=== PATIENT | female | born 1985 | race Caucasian/White ===

== ENCOUNTER 2018-05-14 00:21 | Outpatient (CLI) | payer BC, SELFPAY, MEDICAID ==
--- NOTE | 2018-05-14 13:55 | DI.US_ITS ---
SYMPTOMS/DIAGNOSIS: , SURVEY, Z34.81 OB ULTRASOUND: There is a single living intrauterine gestation. The estimated sonographic age is 18 weeks 6 days. No or placental abnormalities are identified. Please refer to the obstetrical ultrasound examination report for complete details. IMPRESSION: Single living intrauterine gestation. Estimated sonographic age is 18 weeks 6 days. Many abnormalities cannot be diagnosed. A normal exam does not exclude a congenital anomaly. Radiology No. [id number] LMP: Exam Date: [facility] wks days on EDC ([facility]) 10/11/18 Confirmed: HISTORY: survey ---- PREDICTED GESTATIONAL AGE NUMBER 18+4 weeks with a range of 17+4 weeks to 19+4 weeks. 1 Determined by 1STUS X LMP___HISTORY Info. pertaining to fetus # PLACENTA PRESENTATION Grade I Cephalic___ Anterior___Posterior X Breech____ Right Left Transverse(head right___ Fundal X Low-lying___Previa___ Transverse(head left___ Varying X BIOMETRY AMNIOTIC FLUID BPD: 42 mm 18+4 weeks Normal HC: 160 mm 18+6 weeks AC: 131 mm 18+5 weeks FL: 29 mm 19 weeks AMNIOTIC FLUID INDEX >26 WK CRL: mm weeks Cisterna Magna: 5 mm CI: 78 RUQ: LUQ Cerebellum: 1.9 cm EFW: 259 grams Percentile RLQ: LLQ Total: cms Composite AGE= 18+6 wks EDC by US 10/09/18 BIOPHYSICAL PROFILE ANATOMY IDENTIFIED SCORE 0/2 Heart: 4-Chamber X Rate: 149 BPM LVOT: X RVOT: X Amniotic Fluid(>2cms)____ Stomach: X Kidneys: X Respirations (>30 secs) Bladder: X Post. Fossa: X Body Flex/Extension 3 vessel cord:X Ventricles: X cord insertion: X Lips: X Extremity Flex/Extension spinal morphology:X Nose: X Total Score= Palate: X NS=not seen
== END 2018-05-14 00:41 ==
PROVIDERS: PCP Family Medicine; Visit Provider Advanced Practice Midwife
DX: Z34.82 Encounter for supervision of other normal pregnancy, second trimester (principal)
CPT/HCPCS: 76805

== ENCOUNTER 2018-07-20 08:40 | Outpatient (CLI) | payer BC, MEDICAID, SELFPAY ==
[2018-07-20 12:42] LABS: HCT 36.1 % (36.0-46.0); HGB 12.1 g/dL (12.0-15.5); Mean Corp. HGB Concentration 33.5 g/dL (32.0-36.0); Mean Corpuscular Volume 89.4 fL (80-95); Mean Platelet Volume 9.9 fL (8.0-11.0); Platelet Count 249 x1000/uL (130-400); RBC 4.04 m/cumm (4.00-5.20); RBC Distribution Width 14.6 % (11.7-14.6); White Blood Cell Count 15.17 k/cumm (4.4-10.8)
[2018-07-20 12:49] LABS: Glucose,1 Hr (Glucola) 101 mg/dL (80-140)
== END 2018-07-20 09:00 ==
PROVIDERS: PCP Family Medicine; Visit Provider Advanced Practice Midwife
DX: Z34.93 Encounter for supervision of normal pregnancy, unspecified, third trimester (principal)
CPT/HCPCS: 36415; 82950; 85027

== ENCOUNTER 2018-09-21 13:39 | Outpatient (CLI) | payer BC, MEDICAID, SELFPAY | END 2018-09-21 13:59 | PROVIDERS: PCP Family Medicine; Visit Provider Advanced Practice Midwife | DX: Z01.818 Encounter for other preprocedural examination (principal) ==

== ENCOUNTER 2018-09-21 15:59 | Outpatient (REF) | payer BC, MEDICAID, SELFPAY | END 2018-09-21 16:19 | LOC: LBN 15:59 | PROVIDERS: PCP Family Medicine; Visit Provider Advanced Practice Midwife | DX: Z34.93 Encounter for supervision of normal pregnancy, unspecified, third trimester (principal); Z36.85 Encounter for antenatal screening for Streptococcus B | CPT/HCPCS: 87081 ==

== ENCOUNTER 2018-10-18 10:04 | Outpatient (CLI) | payer BC, MEDICAID, SELFPAY | END 2018-10-18 10:24 | PROVIDERS: PCP Family Medicine; Visit Provider Advanced Practice Midwife | DX: O48.0 Post-term pregnancy (principal); Z3A.40 40 weeks gestation of pregnancy | CPT/HCPCS: 59025 ==

== ENCOUNTER 2018-10-18 11:59 | Outpatient (CLI) | payer BC, MEDICAID, SELFPAY ==
[2018-10-18 12:29] LABS: HGB 13.4 g/dL (12.0-15.5)
== END 2018-10-18 12:19 ==
PROVIDERS: PCP Family Medicine; Visit Provider Obstetrics & Gynecology
DX: O34.219 Maternal care for unspecified type scar from previous cesarean delivery (principal); Z01.818 Encounter for other preprocedural examination
CPT/HCPCS: 36415; 86850; 86900; 86901; 85014; 85018

== ENCOUNTER 2018-10-20 01:29 | Inpatient (IN) | payer BC, MEDICAID, SELFPAY ==
[2018-10-20 03:28] LABS: HGB 13.9 g/dL (12.0-15.5); Mean Corp. HGB Concentration 33.9 g/dL (32.0-36.0); Mean Corpuscular Hemoglobin 29.8 pg (27.0-33.0); Platelet Count 211 x1000/uL (130-400); RBC 4.66 m/cumm (4.00-5.20); RBC Distribution Width 15.1 % (11.7-14.6); White Blood Cell Count 12.68 k/cumm (4.4-10.8)
[2018-10-20] MEDS: Acetaminophen 325 MG TAB 650 MG PO ×4 (05:37→19:38)
[2018-10-20] MEDS: Ibuprofen 600 MG TAB PO ×3 (05:38→17:03)
[2018-10-20] MEDS: Hamamelis Leaf/Glycerin 100 EACH BOX PR (05:41)
[2018-10-20] MEDS: Sodium Chloride-Nasal SPRAY-ADULT 44 ML BTL NS ×2 (12:27→17:03)
[2018-10-21] MEDS: Acetaminophen 325 MG TAB 650 MG PO (08:35)
[2018-10-21] MEDS: Ibuprofen 600 MG TAB PO (08:35)
[2018-10-21] MEDS: Sodium Chloride-Nasal SPRAY-ADULT 44 ML BTL NS (08:35)
[2018-10-21 11:31] LABS: HCT 38.4 % (36.0-46.0); HGB 12.8 g/dL (12.0-15.5); Mean Corp. HGB Concentration 33.3 g/dL (32.0-36.0); Mean Corpuscular Hemoglobin 29.7 pg (27.0-33.0); Mean Corpuscular Volume 89.1 fL (80-95); Mean Platelet Volume 10.8 fL (8.0-11.0); Platelet Count 227 x1000/uL (130-400); RBC 4.31 m/cumm (4.00-5.20); RBC Distribution Width 15.2 % (11.7-14.6); White Blood Cell Count 12.47 k/cumm (4.4-10.8)
== END 2018-10-21 14:10 | disposition home or self-care (01) | DRG 807 ==
PROVIDERS: Admitting Provider Advanced Practice Midwife; PCP Family Medicine; Visit Provider Advanced Practice Midwife
DX: O34.211 Maternal care for low transverse scar from previous cesarean delivery (principal); Z37.0 Single live birth; O48.0 Post-term pregnancy; Z3A.41 41 weeks gestation of pregnancy; N85.8 Other specified noninflammatory disorders of uterus; O99.52 Diseases of the respiratory system complicating childbirth; J06.9 Acute upper respiratory infection, unspecified
CPT/HCPCS: 85027; 86850; 86900; 86901; J3490

== ENCOUNTER 2018-12-01 16:25 | Outpatient (REF) | payer BC, MEDICAID, SELFPAY ==
[2018-12-02 15:23] LABS: Chlamydia Result Negative; GC Result Negative; Specimen Description CERVIX
== END 2018-12-01 16:45 ==
LOC: LBN 16:25
PROVIDERS: PCP Family Medicine; Visit Provider Advanced Practice Midwife
DX: Z11.3 Encounter for screening for infections with a predominantly sexual mode of transmission (principal)
CPT/HCPCS: 87491; 87591

== ENCOUNTER 2019-03-30 10:36 | Outpatient (REF) | payer BC, MEDICAID, SELFPAY | END 2019-03-30 10:56 | LOC: LBN 10:36 | PROVIDERS: PCP Family Medicine; Visit Provider Advanced Practice Midwife | DX: R10.9 Unspecified abdominal pain (principal) | CPT/HCPCS: 87077; 87086; 87186 ==

== ENCOUNTER 2022-09-08 14:34 | Outpatient (REF) | payer OTHER, SELFPAY ==
--- NOTE | 2022-09-08 13:45 | PAPFT_PTH ---
PATIENT: Francine Baig LOC: [facility]#:[id number] AGE/SX: 37/F ROOM: RE09/08/[address]: Stephanie Agarwal : 1985 BED: DIS: 09/08/2022 SPEC #: [id number] RECD: 09/08/22 17:22 STATUS: SARAVANAN REOmar #: [id number] AKANKSHA: 09/08/22 13:[address]: Stephanie Agarwal DEPT: [facility] Cytology RECD BY: Raquel Mendez Tissues: 1 - CX/ENDOCX FOR PAP SMEARS Procedures: PAP THIN PREP/UVM Screening HPV DNA PROBE Comments: [id number]
== END 2022-09-08 14:35 | disposition home or self-care (01) ==
LOC: NCHCN 14:34
PROVIDERS: PCP Family Medicine; Visit Provider Family Medicine
DX: Z12.4 Encounter for screening for malignant neoplasm of cervix (principal); Z11.51 Encounter for screening for human papillomavirus (HPV); Z01.419 Encounter for gynecological examination (general) (routine) without abnormal findings
CPT/HCPCS: 88142; 87624

== ENCOUNTER 2022-09-15 14:37 | Outpatient (REF) | payer OTHER, SELFPAY ==
[2022-09-15 15:16] LABS: Abs Immature Grans 0.03 10^3/uL (0.0-0.06); Absolute Basophil Count 0.04 10^3/uL (0.0-0.2); Absolute Lymphocyte Count 2.18 10^3/uL (1.2-3.4); Absolute Monocyte Count 0.63 10^3/uL (0.1-0.8); Absolute Neutrophil Count 5.81 10^3/uL (1.2-6.7); Basophils % 0.5; Eosinophils % 1.1; HCT 36.9 % (36.0-46.0); HGB 12.2 g/dL (11.2-15.7); Immature Grans % 0.3; Lymphocytes % 24.8; MCH 29.3 pg (27.0-33.0); MCHC 33.1 % (32.0-36.0); MCV 89 fL (80-95); MPV 9.5 fL (8.0-11.0); Monocytes % 7.2; Neutrophils % 66.1; Platelet Count 309 10^3/uL (130-400); RBC 4.16 10^6/uL (3.93-5.22); RDW 13.9 % (11.7-14.6); RDW-SD 45.2 fL; WBC 8.79 10^3/uL (4.4-10.8)
[2022-09-15 15:26] LABS: Prothrombin Time 10.3 sec (9.3-11.0)
[2022-09-15 15:46] LABS: ALT 50 U/L (14-59); AST 35 U/L (15-37); Albumin 4.4 g/dL (3.4-5.0); Alkaline Phosphatase 60 U/L (46-116); Anion Gap 10.9 mmol/L (3-11); BUN 13 mg/dL (7-18); Bilirubin, Total 0.4 mg/dL (0.2-1.0); CO2 27.1 mmol/L (21.0-32.0); CREATININE 0.8 mg/dL (0.55-1.02); Calcium 9.2 mg/dL (8.5-10.1); Chloride 103 mmol/L (98-107); Estimated GFR 96.66 (mL/min/1.73m2); Ferritin 158 ng/mL (8-252); Glucose 101 mg/dL (74-106); Potassium 3.7 mmol/L (3.5-5.1); Sodium 141 mmol/L (136-145); TSH (W/Ref FT4) 1.86 uIU/mL (0.36-3.74); Total Protein 7.2 g/dL (6.4-8.2)
== END 2022-09-15 14:38 | disposition home or self-care (01) ==
LOC: LBN 14:37
PROVIDERS: PCP Family Medicine; Visit Provider Surgery
DX: K62.5 Hemorrhage of anus and rectum (principal); R19.8 Other specified symptoms and signs involving the digestive system and abdomen; F17.210 Nicotine dependence, cigarettes, uncomplicated
CPT/HCPCS: 80053; 82728; 84443; 85025; 85610

== ENCOUNTER 2022-09-19 08:50 | Day surgery (SDC) | payer OTHER, SELFPAY ==
--- NOTE | 2022-09-18 21:03 | PDOC.DSDIS_ITS ---
Date of service: 09/19/22 Time of Service: 12:39 Discharge Plan Disposition Patient Disposition: Home Condition: Good Discharge Details Reason For Visit: Colonoscopy Attending Provider: Haroon Matute Primary Care Provider: Stephanie Agarwal Home Meds and New Rx's Prescriptions: Continued ibuprofen 200 mg capsule 400 mg PO QID PRN Mirena 20 mcg/24 hours (5 yrs) 52 mg intrauterine device 1 device IY ONCE multivitamin Tablet 1 tab PO DAILY zinc gluconate 50 mg tablet 50 mg PO DAILY acetaminophen [Tylenol Extra Strength] 500 MG tablet 500 mg PO PRN Qty: 2 Discharge Instructions Instructions: Rubber Band Ligation (GEN), Hemorrhoids (GEN), Diverticulosis (GEN), Diverticulosis Diet (GEN) Additional Instructions: 1. If tolerated, consume a soft, low fiber diet for 1-2 days. [address] not drive, drink alcohol, operate machinery, make critical decisions, or do activities that require coordination or balance for 24 hours. 3. Because air was put into your colon during the procedure, expelling air from your rectum (passing gas or farting) is normal. 4. You may not have a bowel movement for 1-3 days because of the colonoscopy prep. This is normal. 5. Go directly to the emergency room if you notice any of the following: Develop chills (warm to touch), or if you have a thermometer and your temperature is above 101 Difficulty breathing or difficultly swallowing Persistent vomiting Severe abdominal pain, other than gas cramps Severe chest pain Black, tarry stools Any bleeding ? exceeding one tablespoon 6. Call your physician if the site where your intravenous was started becomes red, swollen, painful, and warm to touch. 7. Your physician has reviewed your pre-procedure medications. Please continue to take those medications as previously ordered. You will be given specific information/education regarding any changes to your medications before leaving. Referrals: Haroon Matute MD [ [facility] STAFF PHYSICIAN] - (Follow-up with myself, or Dr. Montague in approximately 10 to 14 days) Activity:: Activity as Tolerated Diet:: As Tolerated Discharge Orders Discharge Orders: Discharge Order (Routine); Ordered 09/18/22 Ordered By: Haroon Matute DS: Diagnosis Discharge Diagnosis (1) BRBPR (bright red blood per rectum): Status: Acute Asessment and Plan: Internal hemorrhoid banding today
--- NOTE | 2022-09-18 21:04 | W.COLOREPORT ---
Date of service: 09/19/22 Time of Service: 12:44 Colonoscopy Report Date of procedure: 09/19/22 Pre-op diagnosis general: Bright red blood per rectum Post-op diagnosis procedure note: other Procedure: Anoscopy with internal hemorrhoid banding. Colonoscopy Surgeon: Haroon Matute Anesthesia Type: General:No Airway Estimated blood loss (mL): 0 Pathology: none sent Complications: None Disposition: same day Indications: Francine is a 37-year-old woman has been experiencing intermittent bright red blood per rectum Prep: Miralax/Dulcolax Procedure Start Time: 12:09 Procedure End Time: 12:30 Retraction Time: 11 Findings: Internal hemorrhoids Procedure Description: After the induction of monitored anesthetic care, and with the patient in left lateral decubitus position, I began by performing an external anorectal exam.? Perineum and skin were normal, as was the anal verge.? There are some fibrosed external skin tags.? Next, I performed a digital rectal exam.? I did not appreciate any abnormal findings.? Next, I used a fiberoptic lit anoscope to examine the anal column and distal rectum. There was a large internal hemorrhoid on the right anterior hemorrhoid column, as well as a large hemorrhoid on the right posterior column. The left lateral column looked normal. I performed band ligation in the usual fashion. Next, I advanced a colonoscope into the rectal vault.? I performed retroflexion. Using insufflation, I then advanced the colonoscope beyond the rectal folds and into the sigmoid colon before advancing towards the cecum.? The quality of the prep was excellent.? The scope was noted to be in the cecum by identification of the ileocecal valve and appendiceal orifice.? I then began withdrawing the colonoscope using repeated irrigation as necessary for full evaluation of the colonic mucosa. There were very rare scattered diverticula. Once the scope was withdrawn to the level of the rectum, great care was taken to examine portions of the rectal folds. I did not see any evidence of tumors or polyps. Finally, the scope was withdrawn and the patient was brought to the same-day surgery recovery unit as the anesthetic wore off. ?The findings and instructions were shared with the patient prior to discharge.
[2022-09-19 09:06] VITALS: BP 101/68; PULSE 58; RESP 16; TEMP 36.7; O2SAT 97
[2022-09-19] MEDS: Lactated Ringers 1,000 ML 80 ML IV (09:25)
--- NOTE | 2022-09-19 10:41 | ANES.PREOP_ITS ---
General Info Date of Service Date Performed: 09/19/22 Height: 5 ft 0.75 in Weight: 46.5 kg Body Mass Index (BMI): 19.5 Surgical Procedure: Operation Date: 09/19/22 10:10 Proposed Procedure Side Surgeon p Colonoscopy Possible Polypectomy Haroon Matute MD s Possible Hemorrhoid Banding Haroon Matute MD Meds Allergies and Home Medications Allergies Allergy/AdvReac Type Severity Reaction Status Date / Time hydrocodone bitartrate AdvReac Intermediate severe Verified 09/17/22 15:15 [From Vicodin] vomiting Home Medication Medication Instructions Recorded acetaminophen 500 mg tablet 500 mg PO PRN ##2 03/12/18 (Tylenol Extra Strength) ibuprofen 200 mg capsule 400 mg PO QID PRN 11/03/18 levonorgestrel 20 mcg/24 hours (8 1 device intrauterine ONCE 12/01/18 yrs) 52 mg intrauterine device (Mirena) multivitamin 1 tab PO DAILY 09/10/22 zinc gluconate 50 mg tablet 50 mg PO DAILY 09/15/22 Current Visit Medications: Current Medications Generic Name Dose Route Start Last Admin Trade Name Freq PRN Reason Stop Dose Admin Hyoscyamine Sulfate 0.125 mg 09/18/22 21:05 Hyoscyamine 0.125 Mg Sl/Oral/Chew SL DIRECTED PRN Ringer's Solution 1,000 mls @ 80 mls/hr 09/19/22 06:00 09/19/22 09:25 IV 09/19/22 23:59 80 mls/hr INFUSION ADRIANNE Administration IV Miscellaneous Supplies 1 each 09/19/22 06:00 Iv Access IV 09/19/22 23:59 DIRECTED ADRIANNE Ondansetron HCl 4 mg 09/18/22 21:05 Ondansetron 4 Mg/2 Ml Vial IVP Q4H PRN PRN Nausea / Vomiting Sodium Chloride 0 ml 09/19/22 06:00 Normal Saline Flush 10 Ml Syr IV 09/19/22 23:59 PRN PRN Sodium Chloride 0 ml 09/19/22 06:00 Normal Saline 10 Ml Vial IJ 09/19/22 23:59 DIRECTED PRN Sterile Water 0 ml 09/19/22 06:00 Water,Injection,Sterile 10 Ml Vial IJ 09/19/22 23:59 DIRECTED PRN PFSH Active Problems Active Problems: Problem Status Onset Code Family history of polyps in the colon Z83.71 Presence of intrauterine contraceptive device 07/03/15 Z97.5 Nicotine dependence F17.200 BRBPR (bright red blood per rectum) K62.5 IUD check up Z30.431 Z34.90 Tobacco use 06/18/17 Z72.0 Smoker 09/28/14 F17.200 Medical History Medical History Dysplasia of cervix (~2002) Family history of ovarian cancer Supervision of other normal (09/28/14) Medical History Comments:: hx of vaping e-cigarettes Surgical History Surgical History Cervical Procedure Colpo/Bx's for abnormal Pap apparently negative . Pt thinks it was in her teens. Paps Negative since. section 2yrs ago. Breech presentation. Suction Tobacco Smoking/Tobacco Use Status: Former Tobacco Use Alcohol Alcohol Intake: current Alcohol intake frequency: a few times a week Substance Use Substance use: Occasionally Substance use type: marijuana Prental History History 4 Para 3 Hx # Term Pregnancies 3 Multiple births 0 Hx # Pregnancies 0 Ectopic pregnancies 0 AB induced 1 Hx Number of Living Children 3 AB spontaneous 0 Past Pregnancies Del. Date GA/Weeks # Preg Succ Route Wgt Sex Labor Lgth Anesth esia Location [facility] 05/11/05 40 No vaginal 3770.487 g Female 14 hrs [place], [place] 05/19/15 40 Yes 3288.545 g Male [place] [facility] 10/20/18 41 No vaginal 3713.788 g Male 2 hours 29 minute s finger toe hand foot palm sole fingernail toenail genital area chin nose face neck other Nancy Jhaveri CNM Delivery Date: 05/11/05 Last Updated by: Nancy Jhaveri [place], [place] Delivery Date: 05/19/15 Last Updated by: Nancy Jhaveri failed version, C/S for breech Delivery Date: 10/20/18 Last Updated by: Jaquelin Horner 1st degree perineal laceration repaired under local anesthesia Vital Signs and Lab Results Vital Signs Most Recent Vital Signs in EMR: Most Recent Vital Signs Temp Pulse Resp BP Pulse Ox 36.7 C 58 L 16 101/68 97 09/19/22 09:06 09/19/22 09:06 09/19/22 09:06 09/19/22 09:06 09/19/22 09:06 Lab Results Blood Type / Crossmatch: 2 No Data to Display Complete Blood Count: White Blood Count 8.79 10^3/uL (4.4-10.8) 09/15/22 14:35 Red Blood Count 4.16 10^6/uL (3.93-5.22) 09/15/22 14:35 Hemoglobin 12.2 g/dL (11.2-15.7) 09/15/22 14:35 Hematocrit 36.9 % (36.0-46.0) 09/15/22 14:35 Platelet Count 309 10^3/uL (130-400) 09/15/22 14:35 Complete Metabolic Panel: Sodium 141 mmol/L (136-145) 09/15/22 14:35 Potassium 3.7 mmol/L (3.5-5.1) 09/15/22 14:35 Chloride 103 mmol/L (98-107) 09/15/22 14:35 Carbon Dioxide 27.1 mmol/L (21.0-32.0) 09/15/22 14:35 BUN 13 mg/dL (7-18) 09/15/22 14:35 Creatinine 0.8 mg/dL (0.55-1.02) 09/15/22 14:35 Est GFR (CKD-EPI 2020) 96.66 (mL/min/1.73m2) 09/15/22 14:35 Calcium 9.2 mg/dL (8.5-10.1) 09/15/22 14:35 Albumin 4.4 g/dL (3.4-5.0) 09/15/22 14:35 Glucose 101 mg/dL (74-106) 09/15/22 14:35 Liver Function Panel: Alanine Aminotransferase (ALT/SGPT) 50 U/L (14-59) 09/15/22 14: 35 Aspartate Amino Transf (AST/SGOT) 35 U/L (15-37) 09/15/22 14:35 Coagulation Panel: INR International Normalized Ratio 1.0 (0.9-1.1) 09/15/22 14:3 5 Prothrombin Time 10.3 sec (9.3-11.0) 09/15/22 14:35 Cardiac Panel: No Data to Display Arterial Blood Gas: No Data to Display Venous Blood Gas: No Data to Display Pancreas Panel: No Data to Display Thyroid Panel: Thyroid Stimulating Hormone (TSH) 1.86 uIU/mL (0.36-3.74) 09/15 14:35 Infectious Disease: No Data to Display Blood Cultures: No Data to Display Toxicology Panel: No Data to Display Panel: No Data to Display Anesthesia Assessment and Plan Anesthesia History Personal History: No History of Anesthesia Complications Family History: Family History Unknown Exercise Tolerance Exercise Tolerance: Metabolic Equivalents>4 Pertinent Negatives Pertinent Negatives: No Symptoms of GERD, No Major Cardiovascular Symptoms or Complaints, No Major Pulmonary Symptoms or Complaints and No History of CVA/TIA Cardiac & Pulmonary Exam Cardiac Exam: Normal S1/S2 Heart Sounds Pulmonary Exam: Clear Bilateral Breath Sounds Implantable Cardiac Device Does patient have a Pacemaker or an ICD?: No Airway Exam Known Difficult Airway: No Mallampati Class: 2 Mouth Opening: Normal (> 3cm) Thyromental Distance: Greater than 3 cm Neck Range of Motion: Full ROM Neck Circumference: Normal Teeth Condition: Normal Dentition ASA Classification ASA Score: ASA 2 Emergency Case?: No NPO Status NPO Status: NPO Clears >2 hours, Solids >8 hours Status Status: Negative HCG Anesthesia Plan Resuscitation Status: Full Code Anesthesia Technique: General Anesthesia Airway Planned: Natural Airway Monitors Used: Standard Monitors Preoperative Comments:: Very anxious on my arrival in room. Found tearful and expressed concern related to the delay. Long and good discussion with the patient, much more relaxed at end of preop. Plan is for midazolam as soon as the glucose and syrup weigher and surgeon are able to interview
[2022-09-19 10:44] VITALS: BMI 19.5
[2022-09-19 12:41] VITALS: BP 112/76; PULSE 73; RESP 16; TEMP 36.5; O2SAT 97
--- NOTE | 2022-09-19 12:51 | PDOC.DSDIS_ITS ---
Date of service: 09/19/22 Time of Service: 12:56 Discharge Plan Disposition Patient Disposition: Home Condition: Good Discharge Details Reason For Visit: Colonoscopy Attending Provider: Haroon Matute Primary Care Provider: Stephanie Agarwal Home Meds and New Rx's Prescriptions: New scopolamine base 1 mg over 3 days patch 3 day 1 patch transdermal Q3D PRN (Reason: nasuea) Qty: 4 0RF Rx Instructions: Apply 1 patch to the back of your ear if you experience nausea while taking pain medications. Leave the patch in place for 3 days. Remove it, and reapply as needed. oxycodone-acetaminophen [Percocet] 5-325 mg tablet 1 tab PO Q8H PRN (Reason: pain) Qty: 12 0RF Rx Instructions: Take 1 tablet by mouth up to every 8 hours if needed for severe pain. do not drive while taking this medication. Continued ibuprofen 200 mg capsule 400 mg PO QID PRN Mirena 20 mcg/24 hours (5 yrs) 52 mg intrauterine device 1 device IY ONCE multivitamin Tablet 1 tab PO DAILY zinc gluconate 50 mg tablet 50 mg PO DAILY acetaminophen [Tylenol Extra Strength] 500 MG tablet 500 mg PO PRN Qty: 2 Discharge Instructions Instructions: Hemorrhoids (GEN), Diverticulosis (GEN), Diverticulosis Diet (GEN), Rubber Band Ligation (GEN) Additional Instructions: 1. If tolerated, consume a soft, low fiber diet for 1-2 days. 2[address] Do not drive, drink alcohol, operate machinery, make critical decisions, or do activities that require coordination or balance for 24 hours. 3. Because air was put into your colon during the procedure, expelling air from your rectum (passing gas or farting) is normal. 4. Obtain a sitz bath from any pharmacy. Soak for 10-15 minutes in warm water, warm water mixed with half a cup of baking soda, or Epson salts after each bowel movement, or up to 5 times per day as needed for pain. 5. Okay to use tylenol and ibuprofen over the counter as needed. Use Percocet as prescribed for severe pain. 6. You may not have a bowel movement for 1-3 days because of the colonoscopy prep. This is normal. 7. Go directly to the emergency room if you notice any of the following: Develop chills (warm to touch), or if you have a thermometer and your temperature is above 101 Difficulty breathing or difficultly swallowing Persistent vomiting Severe abdominal pain, other than gas cramps Severe chest pain Black, tarry stools Any bleeding ? exceeding one tablespoon 8. Call your physician if the site where your intravenous was started becomes red, swollen, painful, and warm to touch. 9. Your physician has reviewed your pre-procedure medications. Please continue to take those medications as previously ordered. You will be given specific information/education regarding any changes to your medications before leaving. Stand Alone Forms: Clari Crowe ([facility]) Referrals: Haroon Matute MD [ [facility] STAFF PHYSICIAN] - (Follow-up with myself, or Dr. Montague in approximately 10 to 14 days) Activity:: Activity as Tolerated Diet:: As Tolerated Discharge Orders Discharge Orders: Discharge Order (Routine); Ordered 09/18/22 Ordered By: Haroon Matute DS: Diagnosis Discharge Diagnosis (1) BRBPR (bright red blood per rectum): Status: Acute
--- NOTE | 2022-09-19 12:51 | W.ANESPOSTOP ---
Postoperative Evaluation Date, Time and Location Date Performed: 09/19/22 Time Performed: 12:51 Patient Location: Day Surgery Unit Vital Signs Most Recent Imported Vital Signs: Most Recent Vital Signs Temp Pulse Resp BP Pulse Ox 36.5 C 73 16 112/76 97 09/19/22 12:41 09/19/22 12:41 09/19/22 12:41 09/19/22 12:41 09/19/22 12:41 Pain Score Most Recent Pain Score: Most Recent Pain Score Pain Level 7 09/19/22 12:41 Assessment Mental Status: Awake (Alert & Oriented to Patient Baseline) Airway and Respiratory Function: Patent airway with normal (patient baseline) respiratory exam Cardiovascular Function: Hemodynamically Stable Hydration Status: Adequately Hydrated Nausea & Vomiting: No Nausea or Vomiting Pain: Pain is Moderate or Severe Postoperative Pain Management: Pain being addressed with medication (Dr. Matute is ordering medication for the patient) Peripheral Nerve Block: Patient did not receive a nerve block
[2022-09-19] MEDS: MORPHine 4 MG/ML SYR 2 MG IVP (12:59)
[2022-09-19] MEDS: Ketorolac 15 MG/ML VIAL IVP (13:01)
[2022-09-19 13:17] VITALS: BP 122/74; PULSE 52; RESP 16; TEMP 36.5; O2SAT 99
== END 2022-09-19 13:46 | disposition home or self-care (01) ==
PROVIDERS: PCP Family Medicine; Visit Provider Surgery
PROC: 0DJD8ZZ Inspection of Lower Intestinal Tract, Via Natural or Artificial Opening Endoscopic (ICD-10-PCS; CPT 45378; principal; 2022-09-19 10:00)
PROC: (CPT 45378; 2022-09-19 10:00)
DX: K62.5 Hemorrhage of anus and rectum; K64.8 Other hemorrhoids
CPT/HCPCS: 45378; 46221; J1100; J1885; J2250; J2270; J2405; J3010

== ENCOUNTER 2022-09-26 02:20 | Outpatient (CLI) | payer OTHER, SELFPAY ==
[2022-09-26 09:15] LABS: Abs Immature Grans 0.04 10^3/uL (0.0-0.06); Absolute Basophil Count 0.07 10^3/uL (0.0-0.2); Absolute Eosinophil Count 0.17 10^3/uL (0.0-0.7); Absolute Monocyte Count 0.89 10^3/uL (0.1-0.8); Absolute Neutrophil Count 7.56 10^3/uL (1.2-6.7); Basophils % 0.7; Eosinophils % 1.6; HCT 39.3 % (36.0-46.0); HGB 12.9 g/dL (11.2-15.7); Immature Grans % 0.4; Lymphocytes % 17.9; MCH 29.3 pg (27.0-33.0); MCHC 32.8 % (32.0-36.0); MCV 89 fL (80-95); MPV 9.1 fL (8.0-11.0); Monocytes % 8.4; Platelet Count 341 10^3/uL (130-400); RBC 4.41 10^6/uL (3.93-5.22); RDW 13.6 % (11.7-14.6); RDW-SD 44.8 fL; WBC 10.63 10^3/uL (4.4-10.8)
[2022-09-26 09:25] LABS: Anion Gap 6.2 mmol/L (3-11); BUN 10 mg/dL (7-18); CO2 30.8 mmol/L (21.0-32.0); Calcium 9.6 mg/dL (8.5-10.1); Chloride 104 mmol/L (98-107); Estimated GFR 73.95 (mL/min/1.73m2); Glucose 93 mg/dL (74-106); Potassium 4.1 mmol/L (3.5-5.1); Sodium 141 mmol/L (136-145)
== END 2022-09-26 02:21 | disposition home or self-care (01) ==
LOC: LBO 02:20
PROVIDERS: PCP Family Medicine; Visit Provider Surgery
DX: K64.9 Unspecified hemorrhoids (principal)
CPT/HCPCS: 36415; 80048; 85025

== ENCOUNTER 2022-10-23 12:34 | Outpatient (REF) | payer OTHER, SELFPAY ==
[2022-10-23 14:35] LABS: Bacteria Few HPF (Negative); C & S Indicated? Yes; Casts Negative LPF (Negative); Crystals Negative HPF (Negative); Epithelial Cells Few HPF (Negative); Mucus Negative (Negative); Other Cells Few Renal (Negative); WBC >50 HPF (0-5)
== END 2022-10-23 12:35 | disposition home or self-care (01) ==
LOC: LBN 12:34
PROVIDERS: PCP Family Medicine; Visit Provider Nurse Practitioner Family
DX: N39.0 Urinary tract infection, site not specified (principal)
CPT/HCPCS: 87077; 81015; 87086; 87186

== ENCOUNTER 2023-09-11 19:24 | Outpatient (REF) | payer OTHER, SELFPAY ==
[2023-09-11 18:21] LABS: HCT 40.8 % (36.0-46.0); HGB 13.6 g/dL (11.2-15.7); MCHC 33.3 % (32.0-36.0); MCV 87 fL (80-95); MPV 9.5 fL (8.0-11.0); Platelet Count 398 10^3/uL (130-400); RBC 4.69 10^6/uL (3.93-5.22); RDW 13.8 % (11.7-14.6); RDW-SD 43.8 fL; WBC 9.61 10^3/uL (4.4-10.8)
[2023-09-11 18:56] LABS: Vitamin D 25 Total 35.3 ng/mL (30-100)
[2023-09-11 18:59] LABS: ALT 42 U/L (14-59); AST 22 U/L (15-37); Albumin 4.5 g/dL (3.4-5.0); Alkaline Phosphatase 64 U/L (46-116); Anion Gap 9.7 mmol/L (3-11); BUN 12 mg/dL (7-18); Bilirubin, Total 0.6 mg/dL (0.2-1.0); CO2 30.3 mmol/L (21.0-32.0); CREATININE 0.9 mg/dL (0.55-1.02); Calcium 9.7 mg/dL (8.5-10.1); Chloride 103 mmol/L (98-107); Glucose 90 mg/dL (74-106); Potassium 3.7 mmol/L (3.5-5.1); Sodium 143 mmol/L (136-145); TSH 0.68 uIU/mL (0.36-3.74); Total Protein 7.4 g/dL (6.4-8.2); Vitamin B12 658 pg/mL (193-986)
[2023-09-11 19:03] LABS: Folate > 20.0 ng/mL (8.6-20.0)
[2023-09-14 10:20] LABS: IgA 118 mg/dL (85-499)
== END 2023-09-11 19:25 | disposition home or self-care (01) ==
LOC: NCHCN 19:24
PROVIDERS: PCP Family Medicine; Visit Provider Family Medicine
DX: R63.4 Abnormal weight loss (principal)
CPT/HCPCS: 80053; 82306; 82784; 85027; 86364; 82607; 82746; 84439; 84443

== ENCOUNTER 2023-12-03 04:51 | Outpatient (CLI) | payer OTHER, SELFPAY ==
[2023-12-03 12:32] LABS: Abs Immature Grans 0.01 10^3/uL (0.0-0.06); Absolute Basophil Count 0.06 10^3/uL (0.0-0.2); Absolute Eosinophil Count 0.12 10^3/uL (0.0-0.7); Absolute Lymphocyte Count 1.99 10^3/uL (1.2-3.4); Absolute Monocyte Count 0.75 10^3/uL (0.1-0.8); Absolute Neutrophil Count 3.01 10^3/uL (1.2-6.7); HCT 40.8 % (36.0-46.0); HGB 13.3 g/dL (11.2-15.7); Immature Grans % 0.2; Lymphocytes % 33.5; MCHC 32.6 % (32.0-36.0); MCV 89 fL (80-95); MPV 9.2 fL (8.0-11.0); Monocytes % 12.6; Neutrophils % 50.7; Platelet Count 283 10^3/uL (130-400); RBC 4.59 10^6/uL (3.93-5.22); RDW 14.3 % (11.7-14.6); RDW-SD 46.5 fL; WBC 5.94 10^3/uL (4.4-10.8)
[2023-12-03 13:42] LABS: ALT 83 U/L (14-59); AST 33 U/L (15-37); Albumin 4.4 g/dL (3.4-5.0); Alkaline Phosphatase 75 U/L (46-116); Anion Gap 10.2 mmol/L (3-11); BUN 13 mg/dL (7-18); Bilirubin, Total 0.4 mg/dL (0.2-1.0); CO2 27.8 mmol/L (21.0-32.0); CREATININE 0.8 mg/dL (0.55-1.02); Calcium 9.4 mg/dL (8.5-10.1); Calculated LDL 116 mg/dL (<100); Chloride 103 mmol/L (98-107); Cholesterol 228 mg/dL (<200); Estimated GFR 96.06 (mL/min/1.73m2); Ferritin 238 ng/mL (8-252); Glucose 90 mg/dL (74-106); HDL Cholesterol 102 mg/dL (40-60); Magnesium 2.1 mg/dL (1.8-2.4); Sodium 141 mmol/L (136-145); TSH 1.95 uIU/Ml (0.36-3.74); Triglyceride 50 mg/dL (<150); Vitamin B12 687 pg/mL (193-986)
[2023-12-03 13:44] LABS: Folate > 20.0 ng/mL (8.6-20.0); Iron 43 ug/dL (50-170); Total Iron Binding Capacity 332 ug/dL (250-450); Transferrin Sat 13 % (15-50)
[2023-12-03 18:06] LABS: FREE T4 0.82 ng/dL (0.76-1.46)
[2023-12-03 19:06] LABS: Vitamin D 25 Total 49.5 ng/mL (30-100)
[2023-12-03 23:07] LABS: T3,Free 3.7 pg/mL (2.8-5.3)
[2023-12-03 23:15] LABS: Thyroperoxidase Antibody 33 U/mL (<=60)
[2023-12-04 09:49] LABS: Homocysteine 7.2 umol/L (5.0-13.9)
[2023-12-06 14:07] LABS: Apolipoprotein A1, S 194 mg/dL (>=140); Apolipoprotein B, S 87 mg/dL (See Comment); Apolipoprotein B/A 1 ratio 0.4 (See Comment)
== END 2023-12-03 04:52 | disposition home or self-care (01) ==
PROVIDERS: PCP Family Medicine; Visit Provider Naturopath
DX: R53.83 Other fatigue (principal); E55.9 Vitamin D deficiency, unspecified; Z13.220 Encounter for screening for lipoid disorders; G43.909 Migraine, unspecified, not intractable, without status migrainosus
CPT/HCPCS: 36415; 80053; 80061; 82172; 82306; 83090; 82607; 82728; 82746; 83540; 83550; 83735; 84439; 84443; 84481; 85025; 86376

== ENCOUNTER 2024-09-20 00:47 | Outpatient (CLI) | payer OTHER, SELFPAY ==
[2024-09-20 12:44] LABS: Abs Immature Grans 0.01 10^3/uL (0.0-0.06); Absolute Basophil Count 0.05 10^3/uL (0.0-0.2); Absolute Lymphocyte Count 2.31 10^3/uL (1.2-3.4); Absolute Monocyte Count 0.54 10^3/uL (0.1-0.8); Basophils % 0.8 %; Eosinophils % 3.1 %; HGB 13.5 g/dL (11.2-15.7); Immature Grans % 0.2 %; MCHC 32.9 % (32.0-36.0); MCV 88 fL (80-95); MPV 9.2 fL (8.0-11.0); Monocytes % 8.4 %; Neutrophils % 51.5 %; Platelet Count 291 10^3/uL (130-400); RBC 4.66 10^6/uL (3.93-5.22); RDW 13.8 % (11.7-14.6); RDW-SD 44.3 fL; WBC 6.41 10^3/uL (4.4-10.8)
[2024-09-20 13:09] LABS: Hemoglobin A1C 5.4 % (<5.7)
[2024-09-20 13:28] LABS: Iron 92 ug/dL (50-170); Total Iron Binding Capacity 293 ug/dL (250-450); Transferrin Sat 31 % (15-50)
[2024-09-20 13:32] LABS: ALT 34 U/L (14-59); AST 19 U/L (15-37); Albumin 4.4 g/dL (3.4-5.0); Alkaline Phosphatase 85 U/L (46-116); Anion Gap 8.5 mmol/L (3-11); BUN 10 mg/dL (7-18); Bilirubin, Total 0.42 mg/dL (0.2-1.0); CO2 30.5 mmol/L (21.0-32.0); CREATININE 0.9 mg/dL (0.55-1.02); Calcium 9.3 mg/dL (8.5-10.1); Calculated LDL 156 mg/dL (<100); Chloride 104 mmol/L (98-107); Cholesterol 259 mg/dL (<200); Estimated GFR 82.88 (mL/min/1.73m2); Ferritin 203 ng/mL (8-252); Glucose 81 mg/dL (74-106); HDL Cholesterol 86 mg/dL (40-60); Potassium 3.7 mmol/L (3.5-5.1); Sodium 143 mmol/L (136-145); Total Protein 7.7 g/dL (6.4-8.2); Triglyceride 87 mg/dL (<150); Vitamin D 25 Total 47.7 ng/mL (30-100)
== END 2024-09-20 00:48 | disposition home or self-care (01) ==
PROVIDERS: PCP Family Medicine; Visit Provider Naturopath
DX: E55.9 Vitamin D deficiency, unspecified (principal); R74.01 Elevation of levels of liver transaminase levels; R77.8 Other specified abnormalities of plasma proteins; E78.5 Hyperlipidemia, unspecified
CPT/HCPCS: 36415; 80053; 80061; 82306; 82728; 83036; 83540; 83550; 85025